=== PATIENT | female | born 1950 | race African-American/Black ===

== ENCOUNTER → 2016-12-17 | Outpatient (CLI) | payer MEDICARE, OTHER ==
--- NOTE | 2016-12-17 18:01 | RADIOLOGY REPORT (SQ) ---
EXAM DESCRIPTION: U/S THYROID/SFT TISS HD NECK COMPLETED DATE/TIME: 12/17/2016 5:49 pm REASON FOR STUDY: NONTOXIC SINGLE THYROID NODULE E04.1 NONTOXIC SINGLE THYROID NODULE COMPARISON: None. TECHNIQUE: Dynamic and static linton-scale images acquired of the thyroid gland. Selected additional c olor/power Doppler images recorded. All images stored to PACS. LIMITATIONS: None. FINDINGS: RIGHT LOBE: Enlarged measuring up to 7.3 cm. Heterogeneous echotexture. Dominant solid n odule within the upper pole measuring 2.3 x 1.8 x 2.0 cm. Additional predominantly cystic nodule/col loid cysts with the largest in the lower pole measuring 1.8 x 1.8 x 1.1 cm. LEFT LOBE: Enlarged measuring up to 6.0 cm. Heterogeneous echotexture. Mixed cystic and solid nodul e within the lower pole measuring 1.5 x 1.6 x 1.5 cm. 11 mm colloid cyst interpolar region left lobe . ISTHMUS: Thickened measuring 4 mm. Heterogeneous echotexture. No cystic or solid masses. OTHER: No other significant finding. IMPRESSION: ENLARGED HETEROGENEOUS THYROID GLAND WITH SOLID AND CYSTIC NODULES DETAILED ABOVE. D OMINANT SOLID NODULE WITHIN THE UPPER POLE RIGHT LOBE OF THE THYROID MEASURES 2.3 CM AND MEETS ULTRAS OUND CRITERIA FOR FINE-NEEDLE BIOPSY. TECHNICAL DOCUMENTATION: JOB ID: [id number] [employer]- All Rights Reserved
== END ==
LOC: RAD 16:34
PROVIDERS: ATTEND Internal Medicine Geriatric Medicine
DX: E04.1 Nontoxic single thyroid nodule (principal)
CPT/HCPCS: 76536

== ENCOUNTER → 2017-02-04 | Day surgery (SDC) | payer MEDICARE, OTHER ==
--- NOTE | 2017-02-04 16:41 | RADIOLOGY REPORT (SQ) ---
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 A ti meout was performed to confirm the procedure and patient's identity. The skin of the neck was preppe d and draped in sterile fashion and 1.0 mL of 1% lidocaine administered for local anesthesia. Under sonographic guidance, fine needle aspiration biopsy was performed of the 2.3 cm mass in the right lob e of the thyroid. Two separate aspirations were performed. Rita from cytology was present to accept the specimens. She stated she had and left material from 2 passes. Hemostasis was obtained with direct manual compr ession. There were no immediate complications. LIMITATIONS: None. FINDINGS: PATHOLOGY: Pending. IMPRESSION: ULTRASOUND-GUIDED BIOPSY PERFORMED OF A MASS IN THE RIGHT LOBE OF THE THYROID. PATHOLO GY PENDING AT THE TIME OF DICTATION. COMMENT: Patient medication list reviewed: Yes- Quality ID# [id number]:Eligible professional attests to doc umenting in the medical record they obtained, updated, or reviewed the patient's current medications. TECHNICAL DOCUMENTATION: JOB ID: [id number] [employer]- All Rights Reserved
== END ==
LOC: RAD 08:43
PROVIDERS: ATTEND Internal Medicine Geriatric Medicine
PROC: 0GBH3ZX Excision of Right Thyroid Gland Lobe, Percutaneous Approach, Diagnostic (ICD-10-PCS; principal; 2017-02-04)
DX: E03.9 Hypothyroidism, unspecified (principal); E04.2 Nontoxic multinodular goiter
CPT/HCPCS: 60100; 88173

== ENCOUNTER → 2017-04-22 | Outpatient (CLI) | payer MEDICARE, OTHER | LOC: OD 14:42 | PROVIDERS: ATTEND Internal Medicine Geriatric Medicine | DX: E03.9 Hypothyroidism, unspecified (principal) ==

== ENCOUNTER → 2017-04-22 | Outpatient (CLI) | payer MEDICARE, OTHER ==
[2017-04-22 13:21] LABS: FREE T3 3.68 pg/mL (2.77-5.27)
[2017-04-22 13:36] LABS: THYROID STIMULATING HORMONE < 0.01 uIU/mL (0.47-4.68)
== END ==
LOC: OD 11:14
PROVIDERS: ATTEND Internal Medicine Geriatric Medicine
DX: E03.9 Hypothyroidism, unspecified (principal); R53.83 Other fatigue
CPT/HCPCS: 36415; 82306; 82607; 82746; 84439; 84443; 84481

== ENCOUNTER → 2017-06-24 | Outpatient (CLI) | payer MEDICARE, OTHER ==
[2017-06-24 13:40] LABS: ABSOLUTE EOSINOPHILS # (AUTO) 0.1 10^3/uL (0.0-0.6); ABSOLUTE MONOCYTES (AUTO) 0.5 10^3/uL (0.1-1.4); ABSOLUTE NEUT (AUTO) 2.2 10^3/uL (1.7-8.2); BASOPHILS % (AUTO) 0.3 % (0-2); EOSINOPHILS % (AUTO) 2.7 % (0-6); HEMATOCRIT 34.5 % (36.0-47.0); HEMOGLOBIN 11.5 g/dL (12.0-15.5); LYMPHOCYTES % (AUTO) 41.1 % (13-45); MEAN CORPUSCULAR HEMOGLOBIN 30.7 pg (27.0-33.4); MEAN CORPUSCULAR HGB CONC 33.3 g/dL (32.0-36.0); MEAN CORPUSCULAR VOLUME 92 fl (80-97); MONOCYTES % (AUTO) 10.7 % (3-13); PLATELET COUNT 250 10^3/uL (150-450); RED BLOOD COUNT 3.74 10^6/uL (3.72-5.28); RED CELL DISTRIBUTION WIDTH 13.6 % (11.5-14.0); SEGMENTED NEUTROPHILS % (AUTO) 45.2 % (42-78); TOTAL CELLS COUNTED % (AUTO) 100 %; WHITE BLOOD COUNT 4.9 10^3/uL (4.0-10.5)
[2017-06-24 14:07] LABS: ALANINE AMINOTRANSFERASE 31 U/L (9-52); ALBUMIN 3.7 g/dL (3.5-5.0); ALKALINE PHOSPHATASE 65 U/L (38-126); ASPARTATE AMINO TRANSFERASE 20 U/L (14-36); BILIRUBIN,DIRECT 0.1 mg/dL (0.0-0.4); BILIRUBIN,TOTAL 0.4 mg/dL (0.2-1.3); TOTAL PROTEIN 7.5 g/dL (6.3-8.2)
[2017-06-25 21:07] LABS: HSV I DNA Positive (Negative)
[2017-06-26 07:06] LABS: HSV II DNA Negative (Negative)
== END ==
LOC: OD 12:12
PROVIDERS: ATTEND Internal Medicine Geriatric Medicine
DX: R10.11 Right upper quadrant pain (principal); B00.1 Herpesviral vesicular dermatitis
CPT/HCPCS: 36415; 80076; 85025; 87529

== ENCOUNTER → 2017-06-25 | Outpatient (CLI) | payer MEDICARE, OTHER ==
--- NOTE | 2017-06-25 10:09 | RADIOLOGY REPORT (SQ) ---
EXAM DESCRIPTION: NM HIDA SCAN WITH CCK COMPLETED DATE/TIME: 06/25/2017 9:44 am REASON FOR STUDY: RUQ PAIN (R10.11) R10.11 RIGHT UPPER QUADRANT PAIN COMPARISON: None. RADIONUCLIDE AND DOSE: DOSAGE RADIONUCLIDE: 5.4 millicuries Tc99m Mebrofenin. DOSAGE CCK: 1.7 micrograms. DOSAGE MORPHINE: Not required. The route of agent administration: Intravenous TECHNIQUE: Serial imaging right upper quadrant up to 60 minutes following injection of radionuclide. CCK injected after gallbladder visualized. LIMITATIONS: None. FINDINGS: LIVER: Normal visualization without areas of photopenia. INTRAHEPATIC BILE DUCTS: Normal size and no delay in visualization. COMMON BILE DUCT: Normal without dilatation. GALLBLADDER: Normal visualization. Calculated ejection fraction of 33%. Normal range is greater th an 35%. PHYSICAL RESPONSE: Patients presenting complaint was reproduced. OTHER: No other significant finding. IMPRESSION: Borderline low ejection fraction. Injection of CCK duplicated the patient's presenting symptoms. TECHNICAL DOCUMENTATION: JOB ID: [id number] [employer]- All Rights Reserved Reading location - IP/workstation name: [email or web address]
== END ==
LOC: RAD 06:47
PROVIDERS: ATTEND Internal Medicine Geriatric Medicine
DX: R10.11 Right upper quadrant pain (principal)
CPT/HCPCS: 78227; J2805; A9537; Q9969

== ENCOUNTER 2017-09-25 16:52 | Emergency (ER) | payer MEDICARE, OTHER ==
[2017-09-25 17:02] VITALS: BP 130/66
--- NOTE | 2017-09-25 17:18 | ER Document Report ---
HPI - HPI Patient complains to provider of: Bee sting Pain Level: 2 Context: Patient is a 66-year-old female presenting to the emergency department complaining of multiple bee stings to her face about 3 hours prior to arrival. Patient complains of focal tenderness to the staying site but denies any swelling to the mouth or tongue. No difficulty swallowing or speaking. No difficulty breathing or shortness of breath Associated Symptoms: None Exacerbated by: Denies Relieved by: Denies Similar symptoms previously: No Recently seen / treated by doctor: No - REPRODUCTIVE Reproductive: DENIES: : Past Medical History - General Information source: Patient - Social History Smoking Status: Never Smoker Frequency of alcohol use: None Drug Abuse: None Lives with: Family Family History: Reviewed & Not Pertinent - Past Medical History Cardiac Medical History: Reports: Hx Coronary Artery Disease, Hx Hypercholesterolemia, Hx Hypertension Denies: Hx Heart Attack Pulmonary Medical History: Denies: Hx Asthma, Hx Bronchitis, Hx COPD, Hx Pneumonia, Hx Tuberculosis Neurological Medical History: Denies: Hx Cerebrovascular Accident, Hx Seizures Endocrine Medical History: Reports: Hx Diabetes Mellitus Type 2, Hx Hypothyroidism Musculoskeletal Medical History: Reports Hx Arthritis Past Surgical History: Reports: Hx Hysterectomy, Hx Thyroid Surgery. Denies: Hx Pacemaker - Immunizations Hx Diphtheria, Pertussis, Tetanus Vaccination: Yes Hx Pneumococcal Vaccination: 12/07/11 Vertical Provider Document - CONSTITUTIONAL Agree With Documented VS: Yes Exam Limitations: No Limitations - INFECTION CONTROL TRAVEL OUTSIDE OF THE [place] IN LAST 30 DAYS: No - HEENT HEENT: Atraumatic, PERRLA - NECK Neck: Normal Inspection, Supple - RESPIRATORY Respiratory: Breath Sounds Normal, No Respiratory Distress - CARDIOVASCULAR Cardiovascular: Regular Rate, Regular Rhythm - NEURO Level of Consciousness: Awake, Alert - DERM Integumentary: Warm, Dry Course - Re-evaluation Re-evalutation: 09/25/17 17:15 Patient is 3 hours post staying. No signs of anaphylactic or allergic reaction. Home care, primary care follow-up and ED return precautions discussed with patient. Patient is agreeable with plan is stable for discharge - Vital Signs Vital signs: Temp Pulse Resp BP Pulse Ox 98.4 F 97 14 130/66 H 97 09/25/17 17:00 09/25/17 17:00 09/25/17 17:00 09/25/17 17:00 09/25/17 17:00 Discharge - Discharge Clinical Impression: Accidental bee sting Condition: Stable Disposition: HOME, SELF-CARE Instructions: Insect Sting ([facility]), Use of Diphenhydramine, Topical Steroid Cream or Ointment ([facility]) Additional Instructions: You are exhibiting no signs of allergic reaction from the bee sting Take Benadryl 50 mg every 6 hours for the next 24 hours Apply hydrocortisone cream to the staying site Follow-up with your primary care for any concerns Return to the ED for any worsening of your status Prescriptions: Hydrocortisone [Hydrocortisone 2.5% Cream 28 gm (Clinic Use)] 1 applic TOP DAILY #15 g Referrals: ZEB WINSTON MD [Primary Care Provider] - Follow up as needed
== END 2017-09-25 17:25 | disposition home or self-care (01) ==
LOC: ER 16:52
DX: T63.441A Toxic effect of venom of bees, accidental (unintentional), initial encounter (principal); X58.XXXA Exposure to other specified factors, initial encounter; I25.10 Atherosclerotic heart disease of native coronary artery without angina pectoris; E78.00 Pure hypercholesterolemia, unspecified; I10 Essential (primary) hypertension; E11.9 Type 2 diabetes mellitus without complications; E03.9 Hypothyroidism, unspecified
CPT/HCPCS: 99282

== ENCOUNTER → 2018-08-09 | Outpatient (CLI) | payer MEDICARE, OTHER ==
[2018-08-09 10:27] LABS: ANION GAP 9 (5-19); BLOOD UREA NITROGEN 23 mg/dL (7-20); CALCIUM 9.8 mg/dL (8.4-10.2); CARBON DIOXIDE 28 mmol/L (22-30); CHLORIDE 106 mmol/L (98-107); GLUCOSE 123 mg/dL (75-110); POTASSIUM 4.3 mmol/L (3.6-5.0)
== END ==
LOC: OD 08:14
PROVIDERS: ATTEND Internal Medicine Geriatric Medicine
DX: I10 Essential (primary) hypertension (principal)
CPT/HCPCS: 36415; 80048

== ENCOUNTER → 2018-11-18 | Outpatient (CLI) | payer MEDICARE, OTHER ==
--- NOTE | 2018-11-18 09:02 | RADIOLOGY REPORT (SQ) ---
EXAM DESCRIPTION: U/S ABDOMEN LIMITED W/O DOP COMPLETED DATE/TIME: 11/18/2018 8:43 am REASON FOR STUDY: RUQ ABD PAIN (R10.11) R10.11 RIGHT UPPER QUADRANT PAIN COMPARISON: 12/05/2011 TECHNIQUE: Dynamic and static grayscale images acquired of the abdomen and recorded on PACS. Additio nal selected color Doppler and spectral images recorded. LIMITATIONS: None. FINDINGS: PANCREAS: No masses. No peripancreatic edema or fluid collections. LIVER: Echotexture is coarse with increased echogenicity consistent with fatty infiltration. LIVER VASCULATURE: Normal directional flow of the main portal vein and hepatic veins. GALLBLADDER: No stones. Normal wall thickness. No pericholecystic fluid. ULTRASOUND-DETECTED ART'S SIGN: Negative. INTRAHEPATIC DUCTS AND COMMON DUCT: CBD and intrahepatic ducts normal caliber. No filling defects. INFERIOR VENA CAVA: Normal flow. AORTA: No aneurysm. RIGHT KIDNEY: Normal size. Normal echogenicity. No solid or suspicious masses. No hydronephrosis. No calcifications. PERITONEAL AND RIGHT PLEURAL SPACE: No ascites or effusions. OTHER: No other significant finding. IMPRESSION: Mild increased echogenicity throughout the liver consistent with fatty infiltration. No other significant findings. TECHNICAL DOCUMENTATION: JOB ID: [id number] [employer]- All Rights Reserved Reading location - IP/workstation name: [email or web address]
== END ==
LOC: RAD 07:24
PROVIDERS: ATTEND Internal Medicine Geriatric Medicine
DX: R10.11 Right upper quadrant pain (principal)
CPT/HCPCS: 76705

== ENCOUNTER 2018-12-30 10:17 | Day surgery (SDC) | payer MEDICARE, OTHER ==
[2018-12-30] MEDS ORDERED: PROPOFOL INJ 200 MG/20 ML VIAL IV ONE ×2 (13:18→14:05)
[2018-12-30] MEDS ORDERED: FENTANYL CITRATE INJ/PF 100 MCG/2 ML AMPUL IV PRN ×3 (13:27)
[2018-12-30] MEDS ORDERED: DIPHENHYDRAMINE HCL 50 MG/ML VIAL IV PRN (13:27)
--- NOTE | 2018-12-30 15:00 | Operative Report ---
Operative Report DATE OF SURGERY: 12/30/18 Operative Report: The risks, benefits and alternatives of the procedure including the risk of bleeding, perforation requiring surgery have been explained to the patient in detail and informed consent has been obtained. The patient is placed in a left, lateral decubital position. Timeout was called. Propofol medication is administered. Rectal examination is done which did not reveal any masses, tears or fissures. An Olympus videoscope was introduced into the patient's rectum. The scope was then carefully advanced all the way to the cecum. The cecum was identified by the usual anatomical landmarks of the ileocecal valve as well as the appendiceal office. Photodocumentation is obtained. The scope was then sequentially pulled back via the various segments of the colon including the ascending colon, hepatic flexure, transverse colon, splenic flexure, descending colon finding to the rectosigmoid portions of the colon. Retroflexion maneuver is performed. PREOPERATIVE DIAGNOSIS: Colorectal cancer screening POSTOPERATIVE DIAGNOSIS: Right side colon Biopsy status post biopsy. Internal hemorrhoids OPERATION: Colonoscopy with biopsy SURGEON: CAMPBELL HINSON ANESTHESIA: LMAC TISSUE REMOVED OR ALTERED: As noted above. COMPLICATIONS: None. ESTIMATED BLOOD LOSS: None. INTRAOPERATIVE FINDINGS: As noted above. PROCEDURE: Patient tolerated the procedure well. No immediate postprocedure complications are noted. Patient is discharged in good condition. Discharge date 12/30/2018. Discharge diet: Regular. Discharge activity: Regular. 2 to 3-week follow-up to discuss findings. Patient is instructed to call the office or proceed to the emergency room should there be any further questions. If biopsies are negative consider a 10-year surveillance colonoscopy.
[2018-12-30 15:37] VITALS: BP 103/58
== END 2018-12-30 14:40 | disposition home or self-care (01) ==
LOC: OROUT 10:17
PROVIDERS: ATTEND Internal Medicine Gastroenterology
DX: Z12.11 Encounter for screening for malignant neoplasm of colon (principal); K64.8 Other hemorrhoids; K52.9 Noninfective gastroenteritis and colitis, unspecified; E11.9 Type 2 diabetes mellitus without complications; E78.5 Hyperlipidemia, unspecified; I10 Essential (primary) hypertension; Z79.899 Other long term (current) drug therapy; Z79.84 Long term (current) use of oral hypoglycemic drugs
CPT/HCPCS: 45380; 82962; 88305 ×2; 00812; J2704; 812